=== PATIENT | female | born 1950 | race American Indian/Alaskan Native ===

== ENCOUNTER 2016-12-12 11:19 | Day surgery (SDC) | payer MEDICARE ==
--- NOTE | 2016-12-11 20:16 | Admit Criteria Form ---
Admission Criteria Documentation: AMBULATORY SURGERY EXCEPTION CRITERIA Ambulatory Surgery Exception Criteria ( Place 'X' for any and all applicable criteria): Surgery or procedure performed on ambulatory basis may require inpatient stay for[A] ANY ONE of the following(1)(2)(3)(4)(5)(6)(7)(8)(9): [X] I. A preoperative situation, condition, or finding that warrants inpatient stay as indicated by ANY ONE of the following: [X] a) Inpatient care needed because of severity of a disease or condition rather than the surgery (eg, severe cardiac or respiratory disease, severe infection) (15) (16 ) (17) (18) [] b) Emergent procedure (eg, angioplasty for acute ischemia)(19) [] c) Complex surgical approach or situation as indicated by ANY ONE of the following(3): [] i) Open approach needed instead of usual endoscopic, transcatheter, or other less invasive procedure [] ii) Difficult approach because of previous operation [] iii) Airway monitoring required after open neck procedures(20)(21) [] iv) Large mass requiring unusually extensive dissection [] v) Additional complicating feature requiring inpatient care (eg, drain management)(22(23): [] d) Major surgery in a pt with high anesthetic risk as indicated by ANY ONE of the following (2)(3)(5)(7)(8): [] i) ASA risk class III or higher (severe systemic disease impairing function) [D] [] ii) Advanced age (eg, older than 85 years)(14)(24) [] iii) Symptomatic heart failure(25) [] iv) Symptomatic asthma or COPD(8)(21) [] v) Morbid obesity with hemodynamic or respiratory problems(20)( 21)(26)(27) [] vi) Obstructive sleep apnea(20)(21) [] vii) Former premature infants who are younger than 60 weeks [] viii) High risk for severe postoperative abnormalities (eg, severe postoperative hypocalcemia after parathyroidectomy for severe hyperparathyroidism)(27)( 28) [] ix) Unstable angina(25) [] e) Drug-related risk requiring inpatient stay as indicated by ANY ONE of the following(5)(10)(14)(32)(33) [] i) Procedure requires discontinuing drugs or other therapy (eg , antiarrhythmic medication, antiseizure medication), which necessitates inpatient observation or treatment.(18)(31) [] ii) Major surgery and high risk drug use as indicated by ANY ONE of the following: [] 1) Active abuse of cocaine or similar drug [] 2) Monoamine oxidase inhibitor use [] 3) Other drug identified as posing risk [] f) Inadequate outpatient care situation as indicated by ANY ONE of the following(5)(10)(14)(32)(33) [] i) Patient lives remote from medical facility and procedure has urgent complication potential, and temporary nearby residence cannot be arranged [] ii) Patient will have postprocedure incapacitation and inadequate assistance at home, or alternative level of care cannot be arranged. [] iii) Patient will have long general anesthesia or procedure side effect resolution time, and competent person to stay with patient on first postoperative night at home or alternative level of care cannot be arranged. []iv) Other inadequate outpatient situation that cannot be handled by other means [] II. A perioperative event, condition, or finding that warrants inpatient stay as indicated by ANY ONE of the following (1)(2)(3): [] a) Inadequate physiologic recovery: cardiovascular, respiratory, or hemodynamic status not normal or near preoperative baseline(18) [] b) Hemodynamic instability [] c) Patient not alert with near normal or baseline mental status [] d) Temperature not normal or as expected and not appropriate for outpatient treatment of condition [] e) Ambulatory or appropriate activity level status not yet achieved post procedure [E](34)(35)(36) [] f) Operative site not appropriate (eg, unexpected or excessive drainage or bleeding) [] g) Postoperative effects not resolved or adequately managed (eg, significant pain or vomiting not appropriate for outpatient or next level of care)(10)(12) [] h) Complicating features requiring inpatient care as indicated by ANY ONE of the following(37): [] i) Severe complications of procedure (eg, bowel injury, airway compromise, vascular injury,severe hemorrhage) [] ii) Extensive (eg, dissection far beyond usual scope of procedure ) or prolonged (eg, 120 minutes beyond usual) surgery needed requiring inpatient postoperative care [] iii) Conversion to an open or complex procedure that requires inpatient care (eg, open vs laparoscopic cholecystectomy, abdominal vs vaginal hysterectomy)(38) [] iv) Comorbid condition or test result identified during or post procedure that requires inpatient care (7) [] v) Malignant hyperthermia(30) [] vi) Other complicating feature requiring inpatient care(22)(23) Inpatient stay may be needed until ALL of the following are present (1)(2)(3)(4) (5)(6)(10)(14)(33)(40): []a) Physiologic recovery: cardiovascular, respiratory, and hemodynamic status normal or near preoperative baseline []b) Hemodynamic stability []c) Patient alert, with near normal or baseline mental status []d) Temperature appropriate: patient afebrile or temperature appropriate for outpt treatment of condition []e) Activity level appropriate: ambulatory or appropriate activity level post procedure []f) Operative site appropriate as indicated by ALL of the following: []i) Site dry or with expected drainage []ii) Any blood noted is as expected for procedure. []g) Postoperative effects resolved or managed as indicated by ALL of the following: []i) Pain management appropriate for outpatient (or next level of) care(10) []ii) Minimal nausea and vomiting: if present, successfully treated with oral medication(12) []iii) Headache, dizziness, or drowsiness (if present) are mild. []h) Voiding status acceptable as indicated by ANY ONE of the following: []i) Voiding spontaneously []ii) No voiding but instructions given for follow-up in 6 to 8 hours []iii) Urinary catheter in place, and instructions given for follow-up []i) Complicating features requiring inpatient care manageable at a lower level of care(37) []j) Comorbid conditions manageable at a lower level of care(37) The original [employer] content created by [employer] has been revised. The portions of the content which have been revised are identified through the use of italic text or in bold, and [employer] has neither reviewed nor approved the modified material. All other unmodified content is copyright [employer]. Please see references footnoted in the original [employer] edition 2016
[~2016-12-12 11:19] MED LIST: ANCEF/STERILE WATER 2 GM/20 ML 2 GM/20 ML SYRINGE IV SCH; ceFAZolin 2 GM in NACL 0.9% 100 ML IV ONE
[2016-12-12] MEDS ORDERED: NACL BACTERIOSTATIC INFILTRATI ONE (12:35)
[2016-12-12] MEDS ORDERED: LACTATED RINGERS 1,000 ML ONE (13:29)
--- NOTE | 2016-12-12 13:32 | Anesthesia Consultation ---
Anesthesia Consult and Med Hx Date of service: 12/12/16 - Airway Anesthetic Teeth Evaluation: Edentulous ROM Head & Neck: Adequate Mental/Hyoid Distance: Adequate Mallampati Class: Class II Intubation Access Assessment: Probably Good - Pulmonary Exam CTA: Yes - Cardiac Exam Cardiac Exam: RRR - Pre-Operative Health Status ASA Pre-Surgery Classification: ASA2 Proposed Anesthetic Plan: General - Pulmonary Hx Smoking: Yes (CHEWING TOBACCO X 48 YRS) Hx Sleep Apnea: No - Central Nervous System Hx Psychiatric Problems: No - Hematic Hx Sickle Cell Disease: Yes (TRAIT) - Other Systems Hx Cancer: No
--- NOTE | 2016-12-12 13:32 | Anesthesia Day of Surgery ---
Anesthesia Day of Surgery - Day of Surgery Patient Examined: Yes Patient H&P Reviewed: Yes Patient is NPO: Yes
[2016-12-12] MEDS ORDERED: MARCAINE 0.25% INFILTRATI ONE ×2 (13:39→14:13)
[2016-12-12] MEDS ORDERED: XYLOCAINE 1%/ EPI 1:100,000 INFILTRATI ONE ×2 (13:39→14:13)
[2016-12-12] MEDS ORDERED: SUBLIMAZE ONE (13:54)
[2016-12-12] MEDS ORDERED: DIPRIVAN 10 MG/ML IV ONE ×2 (13:55→14:04)
[2016-12-12] MEDS ORDERED: DILAUDID ONE (13:55)
[2016-12-12] MEDS ORDERED: XYLOCAINE MPF 2% ONE (13:56)
[2016-12-12] MEDS ORDERED: ZOFRAN ONE (13:56)
[2016-12-12] MEDS ORDERED: DECADRON ONE (13:56)
[2016-12-12] MEDS ORDERED: LACTATED RINGERS 1,000 ML IV SCH (14:00)
[2016-12-12] MEDS ORDERED: ePHEDrine SULFATE ONE (14:12)
[2016-12-12] MEDS ORDERED: NACL 0.9% IR ONE (14:27)
--- NOTE | 2016-12-12 14:47 | Post Operative Note ---
Pre-op diagnosis: Soft tissue mass Left hip Post-op diagnosis: same Findings: Lipoma 15cm 15 cm Procedure: Excision of STM left hip Anesthesia: GETA Surgeon: RUPINDER REINA Estimated blood loss: minimal Pathology: list (soft tissue mass) Specimen disposition: to lab Condition: stable Disposition: PACU
--- NOTE | 2016-12-12 14:49 | Discharge Summary ---
Short Stay Discharge Plan Weight Bearing Status: Full Weight Bearing Diet: regular Wound: keep clean and dry (remove dressings on 12/15 - leave opne after that) Follow up with: VIN WASHINGTON MD [Primary Care Provider] - 7 Days Prescriptions: HYDROcodone/APAP 5-325 [Texline 5-325 mg TAB] 1 each PO Q4HR PRN #20 tablet PRN Reason: Pain
[2016-12-12 15:00] VITALS: BP 160/90
--- NOTE | 2016-12-13 00:12 | Operative Report ---
PREOPERATIVE DIAGNOSIS: Soft tissue mass, left hip. POSTOPERATIVE DIAGNOSIS: Large subcutaneous lipoma 15 cm x 15 cm. OPERATIVE PROCEDURE: Excision of soft tissue mass, left hip. ANESTHESIA: Laryngeal mask anesthesia and local anesthetic with Marcaine and Lidocaine. INDICATIONS: A 66-year-old female patient presenting with a large subcutaneous mass in the left hip area that has been present for several years, increasing in size, but no pain or discomfort. FINDINGS: Subcutaneous lipoma lobulated with mature adipose tissue measuring 15 cm x 13 cm. No extension into the muscles. DESCRIPTION OF PROCEDURE: The patient underwent laryngeal mask intubation and she was placed in left lateral position with appropriate protective devices. Operative area prepped and draped. Skin and subcutaneous tissue and deeper tissues were adequately infiltrated with local anesthetic. A 7-8 cm crease incision was made, subcutaneous tissue was divided. The lipoma was from the deeper tissues and was completely removed. Minimal bleeding controlled by hemostasis. Deeper tissue approximated, interrupted with a 2-0 Vicryl, subcutaneous tissue with 3-0 Vicryl and subcuticular 4-0 Monocryl sutures. Pressure dressings were placed. Specimen was sent for histopathological examination. JOB# [id number] JOSE/[place]
== END 2016-12-12 11:20 | disposition home or self-care (01) ==
LOC: OR 11:19
PROVIDERS: ATTEND Surgery
DX: D17.1 Benign lipomatous neoplasm of skin and subcutaneous tissue of trunk (principal); D57.3 Sickle-cell trait; F17.290 Nicotine dependence, other tobacco product, uncomplicated
CPT/HCPCS: 27043; J0690; J1100; J1170; J2405; J2704; J3010; J7120; 88307

== ENCOUNTER 2017-12-21 08:41 | Outpatient (CLI) | payer MEDICARE ==
--- NOTE | 2017-12-21 09:39 | Mammography Report ---
BONE DENSITY STUDY: DEFINITIONS: BMD = Bone Mineral Density T-score = BMD related to mean peak bone mass of young adult (mean expressed in Standard Deviation) Z-score = Age matched BMD expressed in SD World Health Organization (WHO) Diagnostic Criteria Normal T-score > -1 SD Osteopenia T-score between -1 and -2.4 SD Osteoporosis T-score -2.5 SD or below FINDINGS: The weighted average BMD of lumbar spine L1-L4 is 0.807 with a T-score of -2.2. The weighted average BMD of hip is 0.690 with a T-score of -2.1. IMPRESSION: The patient's T-score is diagnostic for osteopenia and average relative risk for fracture. NOTE: BMD is not the only risk factor for fracture; also consider factors such as the patient's age, risk of falling, previous osteoporotic fracture, family history of osteoporotic fractures, current smoker, and low body weight. Rowan's triangle is a region of interest in femur, predominantly of trabecular bone. It is not a true anatomic site, and [facility] does not recommend its use clinically.
== END 2017-12-21 08:42 | disposition home or self-care (01) ==
LOC: MAMMO 08:41
PROVIDERS: ATTEND Internal Medicine
DX: M85.88 Other specified disorders of bone density and structure, other site (principal); F17.210 Nicotine dependence, cigarettes, uncomplicated; Z78.0 Asymptomatic menopausal state
CPT/HCPCS: 77080